=== PATIENT | female | born 1970 | race Caucasian/White ===

== ENCOUNTER → 2019-03-02 | Outpatient (CLI) | payer OTHER ==
--- NOTE | 2019-03-02 11:19 | REPVR ---
PROCEDURE INFORMATION: Exam: MR Lumbar Spine Without Contrast. Exam date and time: 03/02/2019 9:29 AM Clinical history: 48 years old, female; Low back pain; Additional info: Lbp TECHNIQUE: Imaging protocol: Multiplanar magnetic resonance images of the lumbar spine without intravenous contrast. COMPARISON: No relevant prior studies available. FINDINGS: Vertebral body heights are intact. Alignment is maintained. No pars defect is identified. The conus is unremarkable in appearance, with its tip at the L2 level. There are mild degrees of disc desiccation indicating intervertebral disc degeneration. The visualized abdominal structures appear unremarkable. L1-2: No significant disc displacement. L2-3: No significant disc displacement. There is small fluid in the facet joints. L3-4: Small bulge combining with facet arthrosis to lead to mild right and very mild left neural foraminal narrowing without significant spinal stenosis. There is small fluid in the facet joints. L4-5: Diffuse bulge combining with facet arthrosis to lead to mild to moderate right and mild left neural foraminal narrowing without significant spinal stenosis. There is small fluid in the facet joints. L5-S1: Small bulge combining with facet arthrosis to lead to mild right and very mild left neural foraminal narrowing without significant spinal stenosis. If surgery is considered, recommend level confirmation. IMPRESSION: Multilevel disc desiccation indicating intervertebral disk degeneration with disc displacements as described. Electronically signed by: Chalino Nelson On 03/02/2019 11:18:42 AM
== END ==
LOC: M RAD 09:19
PROVIDERS: ATTEND Registered Nurse Community Health
DX: M54.5 Low back pain (principal)

== ENCOUNTER → 2020-01-06 | Outpatient (REF) | payer OTHER ==
[2020-02-17 10:46] LABS: DRVV SCREEN 51.5 SEC; PTT LUPUS TYPE ANTICOAG SCREEN 1.3 (0-1.2)
[2020-02-17 10:47] LABS: DRVV CONFIRM 40.2 SEC; LUPUS CONFIRM RATIO 1.1; NORMALIZED RATIO 1.18 (0.00-1.20)
[2020-02-19 10:00] LABS: HEMOGLOBIN A1c 5.8 %
[2020-02-19 10:04] LABS: FREE T4 1.25 NG/DL (0.76-1.46)
[2020-03-13 13:00] LABS: Lyme Disease IgG/IgM Antibodie See Separate Report; VITAMIN E(GAMMA TOCOPHEROL) See Separate Report
[2020-03-13 13:01] LABS: ANTINUCLEAR ANTIBODIES DIRECT See Separate Report; VITAMIN B1 LEVEL WHOLE BLOOD See Separate Report; VITAMIN B6,PYRIDOXAL PHOSPHATE See Separate Report; VITAMIN E(ALPHA TOCOPHEROL) See Separate Report
== END ==
LOC: M LAB REF 17:23
PROVIDERS: ATTEND Psychiatry & Neurology Neurology
DX: Z79.899 Other long term (current) drug therapy (principal); E07.9 Disorder of thyroid, unspecified

== ENCOUNTER → 2020-09-09 | Outpatient (RCR) | payer OTHER | LOC: M OT 09-04 09:52 → M ST 09-04 11:00 → M OT 09-07 09:59 → M ST 10:00 | PROVIDERS: ATTEND Physician Assistant Surgical | DX: R29.810 Facial weakness (principal); R13.10 Dysphagia, unspecified ==

== ENCOUNTER 2020-10-08 08:27 | Outpatient (RCR) | payer OTHER | END 2020-10-09 | LOC: M ST 08:27 | PROVIDERS: ATTEND Physician Assistant Surgical | DX: R29.810 Facial weakness (principal); R13.10 Dysphagia, unspecified; Z98.890 Other specified postprocedural states ==

== ENCOUNTER 2020-11-04 09:43 | Outpatient (RCR) | payer OTHER | END 2020-11-09 | LOC: M OT 09:43 | PROVIDERS: ATTEND Physician Assistant Surgical | DX: R29.810 Facial weakness (principal); R13.10 Dysphagia, unspecified; Z98.890 Other specified postprocedural states ==

== ENCOUNTER → 2022-01-28 | Outpatient (REF) | payer OTHER | LOC: M LAB REF 10:34 | PROVIDERS: ATTEND Physician Assistant | DX: R30.0 Dysuria (principal) ==